=== PATIENT | female | born 1970 | race Caucasian/White ===

== ENCOUNTER 2016-11-04 22:24 | Emergency (ER) | payer OTHER ==
[~2016-11-04] VITALS: Ht 162.6 cm; Wt 55.6 kg
[2016-11-04 22:39] VITALS: Ht 162.6 cm; Wt 55.6 kg
[2016-11-04 23:35] LABS: ADD SCAN DIFF NO
[2016-11-04 23:39] LABS: BASOPHIL # 0.1 10^3/ul (0.0-0.1); BASOPHILS % 0.6 % (0.0-2.0); EOSINOPHILS # 0.2 10^3/ul (0.0-0.5); EOSINOPHILS % 1.9 % (0.0-7.0); HEMATOCRIT 39.2 % (37.0-47.0); HEMOGLOBIN 12.7 g/dl (12.0-16.0); LYMPHOCYTES # 2.2 10^3/ul (0.8-2.9); LYMPHOCYTES % 26.8 % (15.0-51.0); MEAN CORPUSCULAR HEMOGLOBIN 27.4 pg (29.0-33.0); MEAN CORPUSCULAR HGB CONC 32.4 g/dl (32.0-37.0); MEAN CORPUSCULAR VOLUME 84.7 fl (82.0-101.0); MEAN PLATELET VOLUME 9.2 fl (7.4-10.4); MONOCYTE # 0.5 10^3/ul (0.3-0.9); MONOCYTES % 6.7 % (0.0-11.0); NEUTROPHIL # 5.1 10^3/ul (1.6-7.5); NEUTROPHILS % 63.8 % (39.0-77.0); PLATELET COUNT 318 10^3/UL (140-415); RED BLOOD COUNT 4.63 10^6/ul (4.20-5.40); RED CELL DISTRIBUTION WIDTH 15.9 % (11.5-14.5); WHITE BLOOD COUNT 8.1 10^3/ul (4.8-10.8)
[2016-11-04 23:53] LABS: ALBUMIN 4.7 g/dl (3.3-4.9)
[2016-11-04 23:54] LABS: CHLORIDE 100 mmol/L (97-110); POTASSIUM 3.9 mmol/L (3.5-5.1); SODIUM 145 mmol/L (135-144)
[2016-11-04 23:56] LABS: ALBUMIN/GLOBULIN RATIO 1.17; ALKALINE PHOSPHATASE 77 IU/L (42-121); ANION GAP 18 (8-16); ASPARTATE AMINO TRANSFERASE 20 IU/L (15-46); BILIRUBIN,INDIRECT 0.3 mg/dl (0-1.1); BILIRUBIN,TOTAL 0.3 mg/dl (0.2-1.3); CARBON DIOXIDE 31 mmol/L (21-31); CREATININE 0.81 mg/dl (0.44-1.00); TOTAL PROTEIN 8.7 g/dl (6.1-8.1)
[2016-11-04 23:57] LABS: ALANINE AMINOTRANSFERASE 19 IU/L (13-69); BLOOD UREA NITROGEN 11 mg/dl (7-20); GLUCOSE 100 mg/dl (70-220)
[2016-11-04 23:58] LABS: ACETAMINOPHEN < 10.0 ug/ml (10.0-30.0); ETHANOL < 10.0 mg/dl; SALICYLATE < 1.0 mg/dl (5.0-30.0)
[2016-11-05 00:10] LABS: CANNABINOIDS Negative (NEGATIVE)
[2016-11-05 00:15] LABS: BARBITURATES Negative (NEGATIVE); BENZODIAZEPINES Negative (NEGATIVE); COCAINE Negative (NEGATIVE); OPIATES Negative (NEGATIVE)
[2016-11-05] MEDS ORDERED: ACETAMINOPHEN 500 MG TAB PO STA (02:31)
[2016-11-05] MEDS ORDERED: ACETAMINOPHEN 325 MG TAB ONE (02:32)
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
[2016-11-05 02:51] VITALS: BP 106/57; PULSE 68; RESP 17; TEMP 98.7
--- NOTE | 2016-11-05 02:57 | ERD ---
ER Documentation Chief Complaint Date/Time DATE: 11/05/16 TIME: 02:54 Chief Complaint suicidal thoughs HPI This 46-year-old female in the emergency room stating that she felt like she wanted to drive a forklift. She is depressed because of the situation her daughter is in. Patient himself denies any physical complaints this states that she is very stressed over her daughter. She herself feels that she is in no danger. ROS All systems reviewed and are negative except as per history of present illness. Allergies Allergies: Coded Allergies: No Known Allergy (Unverified , 11/04/16) PMhx/Soc Medical and Surgical Hx: pt denies Medical Hx, pt denies Surgical Hx Hx Alcohol Use: Yes (SOCIAL ) Hx Substance Use: Yes (SOCIAL ) Hx Tobacco Use: Yes (VAPE ) Smoking Status: Former smoker Physical Exam Vitals Vital Signs Date Time Temp Pulse Resp B/P Pulse Ox O2 Delivery O2 Flow Rate FiO2 11/05/16 02:51 98.7 68 17 106/57 97 Room Air 11/04/16 22:39 98.3 87 20 149/82 100 Physical Exam Const: [] No distress Head: Atraumatic Eyes: Normal Conjunctiva ENT: Normal External Ears, Nose and Mouth. Neck: Full range of motion..~ No meningismus. Resp: Clear to auscultation bilaterally Cardio: Regular rate and rhythm, no murmurs Abd: Soft, non tender, non distended. Normal bowel sounds Skin: No petechiae or rashes Ext: No cyanosis, or edema Neur: Awake and alert Psych: Normal Mood and Affect, calm and cooperative Result Diagram: 11/04/16 2323 11/04/16 2323 Results 24 hrs Laboratory Tests Test 11/04/16 23:18 11/04/16 23:23 Urine Amphetamines Screen Negative Urine Barbiturates Negative Urine Benzodiazepines Screen Negative Urine Cannabinoids Negative Urine Cocaine Screen Negative Urine Opiates Screen Negative Acetaminophen Level < 10.0ug/ml Alanine Aminotransferase (ALT/SGPT) 19IU/L Albumin 4.7g/dl Albumin/Globulin Ratio 1.17 Alkaline Phosphatase 77IU/L Anion Gap 18 Aspartate Amino Transf (AST/SGOT) 20IU/L Basophils # 0.110^3/ul Basophils % 0.6% Blood Urea Nitrogen 11mg/dl Calcium Level 10.0mg/dl Carbon Dioxide Level 31mmol/L Chloride Level 100mmol/L Creatinine 0.81mg/dl Direct Bilirubin 0.00mg/dl Eosinophils # 0.210^3/ul Eosinophils % 1.9% Ethyl Alcohol Level < 10.0mg/dl Globulin 4.00g/dl Glucose Level 100mg/dl Hematocrit 39.2% Hemoglobin 12.7g/dl Indirect Bilirubin 0.3mg/dl Lymphocytes # 2.210^3/ul Lymphocytes % 26.8% Mean Corpuscular Hemoglobin 27.4pg Mean Corpuscular Hemoglobin Concent 32.4g/dl Mean Corpuscular Volume 84.7fl Mean Platelet Volume 9.2fl Monocytes # 0.510^3/ul Monocytes % 6.7% Neutrophils # 5.110^3/ul Neutrophils % 63.8% Nucleated Red Blood Cells # 0.010^3/ul Nucleated Red Blood Cells % 0.0/100WBC Platelet Count 79128^3/UL Potassium Level 3.9mmol/L Red Blood Count 4.6310^6/ul Red Cell Distribution Width 15.9% Salicylates Level < 1.0mg/dl Sodium Level 145mmol/L Total Bilirubin 0.3mg/dl Total Protein 8.7g/dl White Blood Count 8.110^3/ul Current Medications Medications (Trade) Dose Ordered Sig/Abraham Route PRN Reason Start Time Stop Time Status Last Admin Dose Admin Acetaminophen (Tylenol Tab) 1,000 mg ONCE STAT PO 11/05/16 02:31 11/05/16 02:32 DC 11/05/16 02:45 Acetaminophen (Tylenol Tab) 325 mg STK-MED ONCE .ROUTE 11/05/16 02:32 11/05/16 02:33 DC Procedures/MDM Situational depression. Patient is worried about her daughter. After being emergent for a short time she stated check she would not harm herself. Most somewhat and someone to talk to. She was medically cleared after obtaining laboratories and physical exam. She has stated that she was feeling better. Total psychiatrist, Dr. Brooks, valuated the patient and then called me. Neuro the patient does not need to be held if she is not deemed to be a dangerous help. Patient herself does also denies suicidal homicidal ideations. Patient would also like to be discharged that she maybe it is on the monitor daughter situation. I'm going to discharge her with primary care follow-up. Departure Diagnosis: Primary Impression: Depression Condition: Stable Patient Instructions: Depression Referrals: [facility] YOU HAVE RECEIVED A MEDICAL SCREENING EXAM AND THE RESULTS INDICATE THAT YOU DO NOT HAVE A CONDITION THAT REQUIRES URGENT TREATMENT IN THE EMERGENCY DEPARTMENT. FURTHER EVALUATION AND TREATMENT OF YOUR CONDITION CAN WAIT UNTIL YOU ARE SEEN IN YOUR DOCTORS OFFICE WITHIN THE NEXT 1-2 DAYS. IT IS YOUR RESPONSIBILITY TO MAKE AN APPOINTMENT FOR FOLOW-UP CARE. IF YOU HAVE A PRIMARY DOCTOR --you should call your primary doctor and schedule an appointment IF YOU DO NOT HAVE A PRIMARY DOCTOR YOU CAN CALL OUR PHYSICIAN REFERRAL HOTLINE AT IF YOU CAN NOT AFFORD TO SEE A PHYSICIAN YOU CAN CHOSE FROM THE FOLLOWING [facility] [address] [facility] [address] [facility] [facility] [address] [facility] [address] [facility] [address] [facility] [facility] [address] [facility]. [facility] YOU HAVE RECEIVED A MEDICAL SCREENING EXAM AND THE RESULTS INDICATE THAT YOU DO NOT HAVE A CONDITION THAT REQUIRES URGENT TREATMENT IN THE EMERGENCY DEPARTMENT. FURTHER EVALUATION AND TREATMENT OF YOUR CONDITION CAN WAIT UNTIL YOU ARE SEEN IN YOUR DOCTORS OFFICE WITHIN THE NEXT 1-2 DAYS. IT IS YOUR RESPONSIBILITY TO MAKE AN APPOINTMENT FOR FOLOW-UP CARE. IF YOU HAVE A PRIMARY DOCTOR --you should call your primary doctor and schedule and appointment IF YOU DO NOT HAVE A PRIMARY DOCTOR YOU CAN CALL OUR PHYSICIAN REFERRAL HOTLINE AT . IF YOU CAN NOT AFFORD TO SEE A PHYSICIAN YOU CAN CHOSE FROM THE FOLLOWING [facility] INSTITUTIONS: [address] [place] [address] [facility] [address] [place] [address] [facility] [address] [place] [address] Additional Instructions: Call your primary care doctor TOMORROW for a SAME-DAY APPOINTMENT.Tell the construction secretary that you were referred from this facility.Call again if your condition worsens before your appointment time. HAMZAH DIAMOND DO Nov 05, 2016 02:57
== END 2016-11-05 03:10 | disposition home or self-care (01) ==
LOC: E/R 22:24
DX: F32.9 Major depressive disorder, single episode, unspecified (principal); Z87.891 Personal history of nicotine dependence
CPT/HCPCS: 36415; 80053; 80306; 80307; 85025; Z7502; Z7610; 99283